=== PATIENT | female | born 1970 | race African-American/Black ===

== ENCOUNTER 2023-06-12 20:52 | Emergency (ER) | payer MEDICAID, OTHER ==
[~2023-06-12] VITALS: Ht 160 cm; Wt 90.7 kg
[2023-06-12] MEDS ORDERED: HYDROCODONE/APAP 5/325MG TABLET ONE ×2 (21:52→21:59)
[2023-06-12] MEDS ORDERED: HYDROCODONE/APAP 5/325MG TABLET PO ONE (22:00)
[2023-06-13 00:15] VITALS: BP 130/75; TEMP 98.1; O2SAT 99
[2023-06-16] MEDS ORDERED: ACETAMINOPHEN ES 500 MG TABLET ONE (20:06)
[2023-06-17] MEDS ORDERED: ACETAMINOPHEN ES 500 MG TABLET PO ONE ×2 (12:00)
== END 2023-06-13 00:15 | disposition home or self-care (01) ==
LOC: ER 21:03
DX: S63.502A Unspecified sprain of left wrist, initial encounter (principal); S50.12XA Contusion of left forearm, initial encounter; S09.90XA Unspecified injury of head, initial encounter; Z88.0 Allergy status to penicillin; Y04.2XXA Assault by strike against or bumped into by another person, initial encounter; Y93.61 Activity, american tackle football; Y92.89 Other specified places as the place of occurrence of the external cause; Y99.8 Other external cause status
CPT/HCPCS: 70450-TC; 70486-TC; 72125-TC; 73090-TC; 73110; 73130-TC